=== PATIENT | female | born 1950 | race Caucasian/White ===

== ENCOUNTER → 2020-05-12 14:45 | Outpatient (BNVA) | payer OTHER, SELFPAY | PROVIDERS: PCP Internal Medicine; Referring Provider Internal Medicine; Visit Provider Internal Medicine Endocrinology, Diabetes & Metabolism | DX: Z13.89 Encounter for screening for other disorder (principal) | CPT/HCPCS: Q3014 ==

== ENCOUNTER → 2020-08-21 13:22 | Outpatient (BNVA) | payer OTHER, SELFPAY | PROVIDERS: PCP Internal Medicine; Visit Provider Student in an Organized Health Care Education/Training Program | DX: M19.041 Primary osteoarthritis, right hand (principal); M19.042 Primary osteoarthritis, left hand; M17.0 Bilateral primary osteoarthritis of knee | CPT/HCPCS: 99212 ==

== ENCOUNTER 2020-11-24 13:58 | Outpatient (REF) | payer OTHER, SELFPAY ==
[2020-11-24 15:31] LABS: Estimated Average Glucose 232 mg/dL; Hemoglobin A1c % 9.7 %
[2020-11-24 15:34] LABS: Alanine Aminotransferase 68 U/L (0-31); Albumin Level 4.3 g/dL (3.5-5.0); Alkaline Phosphatase 331 U/L (39-117); Anion Gap 17 (12-20); Aspartate Amino Transferase 39 U/L (5-31); Bilirubin Total 0.7 mg/dL (0.0-1.0); Blood Urea Nitrogen 16 mg/dL (9-16); Calcium 10.1 mg/dL (8.4-10.2); Carbon Dioxide 22 mmol/L (22-29); Chloride 106 mmol/L (96-108); Cholesterol 152 mg/dL; Estimated Glomerular Filt Rate 48; Glucose Fasting 293 mg/dL (60-99); HDL Cholesterol 65 mg/dL; LDL Cholesterol Calculated 51 mg/dl; Potassium 4.5 mmol/L (3.3-5.1); Sodium 140 mmol/L (135-145); Total Protein 7.6 g/dL (6.5-8.0); Triglycerides 184 mg/dL
[2020-11-25 07:11] LABS: LDL Cholesterol Direct 50 mg/dL (<100)
== END 2020-11-24 13:59 | disposition home or self-care (01) ==
LOC: HO.LAB 13:58
PROVIDERS: Absent Provider Internal Medicine Endocrinology, Diabetes & Metabolism; PCP Internal Medicine; Visit Provider Internal Medicine
DX: J44.9 Chronic obstructive pulmonary disease, unspecified (principal); G47.33 Obstructive sleep apnea (adult) (pediatric); E11.65 Type 2 diabetes mellitus with hyperglycemia; E66.9 Obesity, unspecified; Z68.35 Body mass index [BMI] 35.0-35.9, adult; Z79.51 Long term (current) use of inhaled steroids; Z79.899 Other long term (current) drug therapy
CPT/HCPCS: 36415; 80053; 80061; 83036; 83721; 99202

== ENCOUNTER → 2021-09-14 14:30 | Outpatient (BNVA) | payer MEDICARE, SELFPAY | PROVIDERS: PCP Internal Medicine; Visit Provider Internal Medicine | DX: J44.9 Chronic obstructive pulmonary disease, unspecified (principal); G47.33 Obstructive sleep apnea (adult) (pediatric); E66.9 Obesity, unspecified; R91.1 Solitary pulmonary nodule; Z68.35 Body mass index [BMI] 35.0-35.9, adult | CPT/HCPCS: 99212 ==

== ENCOUNTER 2021-09-15 10:30 | Outpatient (REF) | payer MEDICARE, SELFPAY ==
--- NOTE | ~2021-09-15 | XR_ITS ---
EXAMINATION: XR SHOULDER, RIGHT CLINICAL INFORMATION: Right posterior shoulder pain, no injury COMPARISON: None TECHNIQUE: AP external rotation, Grashey, scapular Y, and axillary views of the right shoulder. FINDINGS: ACROMIOCLAVICULAR JOINT: Mild osteoarthritis of the acromioclavicular joint with marginal osteophytes. GLENOHUMERAL JOINT: Small marginal osteophytes without joint space narrowing indicative of mild osteoarthritis. SURROUNDING BONE AND SOFT TISSUES: Unremarkable. XR/XR shoulder RT min 2V IMPRESSION: Osteoarthritis of the right shoulder joints.
== END 2021-09-15 10:31 | disposition home or self-care (01) ==
LOC: HO.XRAY 10:30
PROVIDERS: PCP Internal Medicine; Visit Provider Nurse Practitioner Family
DX: M25.511 Pain in right shoulder (principal); M19.041 Primary osteoarthritis, right hand; M19.042 Primary osteoarthritis, left hand; M17.0 Bilateral primary osteoarthritis of knee; M79.7 Fibromyalgia; Z79.899 Other long term (current) drug therapy
CPT/HCPCS: 73030; 99212

== ENCOUNTER 2021-11-18 12:35 | Outpatient (REF) | payer OTHER, SELFPAY ==
--- NOTE | 2021-11-18 15:09 | PFT_ITS ---
FLOWS: FEV1 88% of predicted at 1.92 L. FVC 88% of predicted at 2.49 L. FEV1 to FVC ratio of 0.77. No bronchodilator response. LUNG VOLUMES: Total lung capacity 96% of predicted at 4.89 L. Residual volume 108% of predicted at 2.46 L. Slow vital capacity 87% of predicted at 2.43 L. Expiratory reserve volume 33% of predicted at 0.21 L. Diffusion capacity is mildly decreased, diffusion capacity corrects to normal after adjustment for alveolar ventilation. IMPRESSION: No obstructive or restrictive ventilatory defect. No bronchodilator response except in small to medium airways. Decreased expiratory reserve volume suggests extrathoracic restriction likely secondary to abdominal obesity. Lester Burnett MD AP/MODL / [id number]
== END 2021-11-18 12:36 | disposition home or self-care (01) ==
LOC: HO.RESP 12:35
PROVIDERS: PCP Internal Medicine; Visit Provider Internal Medicine
DX: J44.9 Chronic obstructive pulmonary disease, unspecified (principal); R06.02 Shortness of breath
CPT/HCPCS: 94060; 94727; 94729

== ENCOUNTER 2023-04-13 12:59 | Outpatient (AMB) | payer OTHER, SELFPAY ==
--- NOTE | 2023-04-13 13:17 | A.OFFVIS_ITS ---
Intake Vital Signs 04/13/23 13:18 BP 126/72 Blood Pressure Location Lt brachial Position Sitting Pulse 116 H Pulse Source Pulse Oximeter Pulse Oximetry (%) 96 Oxygen Delivery Method Room Air Intake Visit Reasons: copd Allergies No Known Allergies [No Known Allergies*] Allergy (Verified 04/13/23 13:41) Medication List - Last Reconciled 04/13/23 by Michael Tripathi MD albuterol sulfate 90 mcg/actuation 2 puffs inhalation Q4H PRN alcohol swabs 0 pad topical QID aripiprazole 5 mg PO DAILY ascorbic acid (vitamin C) 500 mg PO QAM atorvastatin 20 mg PO BEDTIME blood sugar diagnostic (FreeStyle Lite Strips) 1 strip miscellaneous BID 90 days cholecalciferol (vitamin D3) 50 mcg PO DAILY 30 days duloxetine 60 mg PO DAILY duloxetine 30 mg PO DAILY empagliflozin 25 mg PO QAM 30 days fluticasone furoate-vilanterol 100-25 mcg/dose (Breo Ellipta) 1 ea PO DAILY folic acid 1 mg PO DAILY FreeStyle Lancets (lancets) 28 gauge topical BID 30 days NS gabapentin 600 mg PO TID galcanezumab-gnlm mg subcut galcanezumab-gnlm (Emgality) mg subcut glipizide ER 5 mg PO DAILY [heating pad As directed] melatonin 10 mg PO BEDTIME mirtazapine 15 mg PO BEDTIME nystatin topical BID omeprazole 20 mg PO DAILY ondansetron HCl 4 mg PO DAILY PRN sitagliptin phosphate (Januvia) 100 mg PO DAILY topiramate 25 mg PO DAILY Do you need a note to return to daycare/school/sports/work: No HPI copd HPI Details 73 YEARS OLD FEMALE IS HERE FOR FOLLOW-U P FOR HER COPD, AFTER 6 MONTHS. SHE HAS REMAINED VERY STABLE ALL ALONG, BUT DOES GET SHORT OF BREATH ON WALKING AROUND EVEN IN THE HOUSE. SHE HAS HAD NO RECURRENT RESPIRATORY INFECTION. THIS PATIENT ALSO HAS OBSTRUCTIVE SLEEP APNEA, SHE HAS BEEN FOLLOWED UP AT [facility] FOR HER SLEEP APNEA, SHE HAS ISSUES WITH THE MASK AND CANNOT USE THE CPAP REGULARLY. I ADVISED HER TO MAKE AN APPOINTMENT TO BE SEEN AT THE [facility] SLEEP MEDICINE OFFICE. SHE REMAINS GROSSLY OVERWEIGHT AND THAT CONTRIBUTES TO HER DYSPNEA ON EXERTION PFSH Medical History Pulmonary nodule Asthma with COPD ORALIA (obstructive sleep apnea) Vitamin D deficiency Obesity (BMI 30-39.9) Hypertension Dyslipidemia Diabetes type 2, uncontrolled Hx of cataract Surgical History History of lumpectomy of left breast Hx of knee surgery Hx of repair of rotator cuff Hx of cholecystectomy Family History Father Cirrhosis Mother Cancer Diabetes mellitus CVD (cardiovascular disease) Social History Patient Tobacco Use Status: Never used Tobacco Review of Systems Const All systems reviewed & are unremarkable except as noted in HPI and below Reports fatigue, Reports headache(s) (frequent ) and Reports snoring Eyes Reports other (H/O allergic conjunctivitis ) ENT Reports headache(s) (frequent ), Denies nasal congestion and Denies nasal discharge Card Denies chest pain (non specific ) and Reports dyspnea on exertion Resp Reports cough (mild , intermittent .), Reports dyspnea on exertion, Reports snoring and Denies wheezing GI Reports no additional complaints Reports no additional complaints Musc Reports back pain and Reports arthralgias Neuro Reports headache(s) (frequent ) Psych Reports no additional complaints Endo Reports fatigue and Reports other (Diabetes Mellitis ) Gerardo/Lymph Reports no additional complaints Aller/Immun Denies wheezing Physical Exam Vital Signs: Last Vital Signs Pulse 116 H 04/13/23 13:18 BP 126/72 04/13/23 13:18 Pulse Ox 96 04/13/23 13:18 Oxygen Delivery Method Room Air 04/13/23 13:18 Const General: comfortable, no acute distress, alert and awake Orientation/consciousness: patient oriented x3 HEENT Head: Yes normal to inspection General nose exam: No nasal polyps present and No nasal discharge present Face and sinus: Yes sinuses nontender Mouth: oropharynx normal Throat: Yes posterior oropharynx normal Eyes General: appearance normal, both eyes and all related structures Neck Neck: Yes normal visual inspection, Yes no lymphadenopathy, Yes trachea midline and Yes no JVD Thyroid: Thyroid normal Chest Chest palpation & inspection: normal inspection of the chest, normal palpation of entire chest wall and no tenderness Resp Other: Percussion note is resonant, breath sounds slightly distant but equal on both sides No wheezes rhonchi or Creps are heard. Cardio Palpation: normal PMI Rate: regular rate Rhythm: regular rhythm Heart sounds: no gallops and no murmurs GI Palpation (GI): Soft to palpation, nontender, No hepatosplenomegaly present and no masses Auscultation: normal bowel sounds Back/Spine/Pelvis Thoracic/Lumbar Spine: thoracic and lumbar spine normal to inspection Skin General skin exam: no rashes or lesions noted Neuro General: patient oriented x3 and no focal motor deficits Cranial nerves: Yes CN's II-XII intact bilaterally Extrem General: Yes normal to inspection, Yes no clubbing, cyanosis or edema and Yes no calf tenderness Psych Appearance: grossly normal and well kempt Speech and movement: Normal speech and movement present Assessment & Plan Assessment & Plan (1) Asthma with COPD: Comment: SYMPTOMS SUGGESTIVE OF CHRONIC BRONCHIAL ASTHMA/COPD, BUT SHE MAY ALSO HAVE SOME RESTRICTIVE PULMONARY COMPONENT. A PULMONARY FUNCTION TEST IS ORDERED TO CLARIFY THE DIAGNOSIS. ( DID NOT HAVE PULMONARY FUNCTION TEST ) [place] : CONTINUE, BREO-100/25 1 INHALATION DAILY AND PROAIR 2 PUFFS Q 4-6 HOURS ONLY P.R.N. IF HE SHE HAS WHEEZING OR BOUTS OF PERSISTENT COUGH ( prescriptions renewed) Code(s): J44.9 - Chronic obstructive pulmonary disease, unspecified (2) Pulmonary nodule: Comment: DURING A RECENT ADMISSION AT TO [facility] FOR CHEST PAIN, SHE HAD CTA OF THE CHEST. SHE WAS FOUND TO HAVE 14 MM NODULE IN THE LINGULA. A repeat CT scan was ordered the last time when I saw her in 2021, . But it has never been done I a.m. placing an order for CT scan now once again. Code(s): R91.1 - Solitary pulmonary nodule (3) ORALIA (obstructive sleep apnea): Comment: PATIENT DID HAVE HOME SLEEP STUDY AT [facility] SHE HAD MILD OBSTRUCTIVE SLEEP APNEA WITH TOTAL SLEEP TIME AHI 9 FOR MANAGEMENT OF HER CPAP AND SLEEP APNEA SHE IS TO BE FOLLOWED UP AT [facility] SLEEP MEDICINE. I ADVISED HER TO MAKE APPOINTMENT AND SEE THEM REGULARLY. Code(s): G47.33 - Obstructive sleep apnea (adult) (pediatric) Orders: Orders CT chest wo IV con Today J44.9 - Chronic obstructive pulmonary disease, unspecified, R91.1 - Solitary pulmonary nodule Coding Level of Care Code Est Pt Level 3 (14079) Diagnoses Asthma with COPD J44.9 Pulmonary nodule R91.1 ORALIA (obstructive sleep apnea) G47.33
[2023-04-13 13:18] VITALS: BP 126/72; PULSE 116; O2SAT 96
== END 2023-04-13 13:42 | disposition home or self-care (01) ==
PROVIDERS: PCP Internal Medicine; Visit Provider Internal Medicine
DX: J44.9 Chronic obstructive pulmonary disease, unspecified (principal); R91.1 Solitary pulmonary nodule; G47.33 Obstructive sleep apnea (adult) (pediatric)
CPT/HCPCS: 99213

== ENCOUNTER → 2023-04-13 12:59 | Outpatient (BNVA) | payer OTHER, SELFPAY | PROVIDERS: PCP Internal Medicine; Visit Provider Internal Medicine | DX: J44.9 Chronic obstructive pulmonary disease, unspecified (principal); R91.1 Solitary pulmonary nodule; G47.33 Obstructive sleep apnea (adult) (pediatric) | CPT/HCPCS: 99212 ==

== ENCOUNTER 2023-05-17 15:26 | Outpatient (REF) | payer MEDICARE, MEDICAID, SELFPAY ==
--- NOTE | ~2023-05-17 | CT_ITS ---
EXAMINATION: CT CHEST WITHOUT CONTRAST CLINICAL INFORMATION: Asthma with COPD, solitary pulmonary nodule COMPARISON: None available. TECHNIQUE: Multidetector volumetric CT imaging of the chest was done. Axial MIP volume rendering provided. Sagittal and coronal reformatted images were obtained. This CT examination was performed using dose optimization techniques as appropriate, variously including the following: *Automated exposure control *Adjustment of mA and/or kV according to patient size (this includes techniques or standardized protocols for targeted exams where dose is matched to indication/reason for exam; i.e. extremities or head) *Use of iterative reconstruction technique DLP: 166 mGy-cm FINDINGS: CREDIT ADJUSTER: Mildly elevated right hemidiaphragm. Cholecystectomy clips. LUNGS: Right apical and pleural parenchymal thickening. Trachea and bronchi are patent. Right posterolateral tracheal diverticulum. Mild bronchial wall thickening. Scattered atelectasis. No consolidations, groundglass opacities or nodules. MEDIASTINUM: Unremarkable thyroid. Small hiatal hernia. No pathologic lymphadenopathy. Nonspecific lymph nodes, prevascular lymph node measures 5 mm in short axis. No pathologic lymphadenopathy. Heart is not enlarged. No pericardial effusion. Nonaneurysmal aorta. Nonenlarged pulmonary arteries. CORONARY ARTERY CALCIFICATION: None visualized on this study. PLEURA: There is no pleural effusion. No pleural mass or thickening. AXILLA: No lymphadenopathy. UPPER ABDOMEN: Diffuse hypodensity to enlarged liver. Status post cholecystectomy. Findings suggesting previous gastric surgery. OSSEOUS STRUCTURES: Degenerative changes. No suspicious osseous lesions. CT/CT chest wo IV con IMPRESSION: No suspicious lung nodules. No acute cardiopulmonary disease.. Enlarged fatty liver. Fleischner guidelines were followed.
== END 2023-05-17 15:27 | disposition home or self-care (01) ==
LOC: HO.CT 15:26
PROVIDERS: PCP Internal Medicine; Visit Provider Internal Medicine
DX: R91.1 Solitary pulmonary nodule (principal); J44.9 Chronic obstructive pulmonary disease, unspecified
CPT/HCPCS: 71250

== ENCOUNTER 2023-10-12 13:18 | Outpatient (AMB) | payer OTHER, SELFPAY ==
--- NOTE | 2023-10-12 13:25 | A.OFFVIS_ITS ---
Vital Signs 10/12/23 13:26 Height 5 ft 4 in Weight 200 lb 9.93 oz BMI 34.4 BP 130/80 Blood Pressure Location Lt brachial Position Sitting Pulse 111 H Pulse Source Pulse Oximeter Pulse Oximetry (%) 96 Oxygen Delivery Method Room Air Intake Visit Reasons: copd Intake Note: pt is here and states she feels little short of breath with walking [employer] Required: No Allergies No Known Allergies [No Known Allergies*] Allergy (Verified 10/12/23 13:41) Medication List - Last Reconciled 10/12/23 by Michael Tripathi MD albuterol sulfate 90 mcg/actuation 2 puffs inhalation Q4H PRN alcohol swabs 0 pad topical QID ascorbic acid (vitamin C) 500 mg PO QAM atorvastatin 20 mg PO BEDTIME blood sugar diagnostic (FreeStyle Lite Strips) 1 strip miscellaneous BID 90 days cholecalciferol (vitamin D3) 50 mcg PO DAILY 30 days divalproex ER (Depakote ER) 500 mg PO DAILY empagliflozin 25 mg PO QAM 30 days fluticasone furoate-vilanterol 100-25 mcg/dose (Breo Ellipta) 1 ea PO DAILY 30 days folic acid 1 mg PO DAILY FreeStyle Lancets (lancets) 28 gauge topical BID 30 days NS gabapentin 600 mg PO TID galcanezumab-gnlm mg subcut galcanezumab-gnlm (Emgality) mg subcut glipizide ER 10 mg PO DAILY [heating pad As directed] hydroxyzine HCl 10 mg PO BEDTIME mecobalamin (vitamin B12) 1,000 mcg PO DAILY nystatin topical BID PRN riboflavin (vitamin B2) 100 mg PO DAILY sitagliptin phosphate (Januvia) 100 mg PO DAILY venlafaxine ER 150 mg PO BEDTIME venlafaxine ER 75 mg PO BEDTIME Do you need a note to return to daycare/school/sports/work: No HPI HPI copd: Details: 73 years old female moderately obese, is here for follow-up of her COPD . She has remained stable in the last 6 months without any acute infection or ex acerbation. She does get short of breath when she walks up hill or climbs stairs, and has only occasional cough. She has hardly needed to use albuterol. She does use Breo once a day . After her last visit here she had CT scan of the chest which was essentially normal and there was no nodule noted. She is a case of obstructive sleep apnea being followed by sleep medicine of [facility], however even after her last visit she has not been able to contact the service and she has not been provided with any CPAP . [facility] Medical History Pulmonary nodule Asthma with COPD ORALIA (obstructive sleep apnea) Vitamin D deficiency Obesity (BMI 30-39.9) Hypertension Dyslipidemia Diabetes type 2, uncontrolled Hx of cataract Surgical History History of lumpectomy of left breast Hx of knee surgery Hx of repair of rotator cuff Hx of cholecystectomy Family History Father Cirrhosis Mother Cancer Diabetes mellitus CVD (cardiovascular disease) Social History Patient Tobacco Use Status: Never used Tobacco Review of Systems Const All systems reviewed & are unremarkable except as noted in HPI and below Reports fatigue, Reports headache(s) (frequent ) and Reports snoring Eyes Reports other (H/O allergic conjunctivitis ) ENT Reports headache(s) (frequent ), Denies nasal congestion and Denies nasal discharge Card Denies chest pain (non specific ) and Reports dyspnea on exertion Resp Reports cough (mild , intermittent .), Reports dyspnea on exertion, Reports snoring and Denies wheezing GI Reports no additional complaints Reports no additional complaints Musc Reports back pain and Reports arthralgias Neuro Reports headache(s) (frequent ) Psych Reports no additional complaints Endo Reports fatigue and Reports other (Diabetes Mellitis ) Gerardo/Lymph Reports no additional complaints Aller/Immun Denies wheezing Physical Exam Vital Signs: Last Vital Signs Pulse 111 H 10/12/23 13:26 BP 130/80 10/12/23 13:26 Pulse Ox 96 10/12/23 13:26 Oxygen Delivery Method Room Air 10/12/23 13:26 BMI result Body Mass Index 34.4 Const General: comfortable, no acute distress, alert and awake Orientation/consciousness: patient oriented x3 HEENT Head: Yes normal to inspection General nose exam: No nasal polyps present and No nasal discharge present Face and sinus: Yes sinuses nontender Mouth: oropharynx normal Throat: Yes posterior oropharynx normal Eyes General: appearance normal, both eyes and all related structures Neck Neck: Yes normal visual inspection, Yes no lymphadenopathy, Yes trachea midline and Yes no JVD Thyroid: Thyroid normal Chest Chest palpation & inspection: normal inspection of the chest, normal palpation of entire chest wall and no tenderness Resp Other: Percussion note is resonant, breath sounds slightly distant but equal on both sides No wheezes rhonchi or Creps are heard. Cardio Palpation: normal PMI Rate: regular rate Rhythm: regular rhythm Heart sounds: no gallops and no murmurs GI Palpation (GI): Soft to palpation, nontender, No hepatosplenomegaly present and no masses Auscultation: normal bowel sounds Back/Spine/Pelvis Thoracic/Lumbar Spine: thoracic and lumbar spine normal to inspection Skin General skin exam: no rashes or lesions noted Neuro General: patient oriented x3 and no focal motor deficits Cranial nerves: Yes CN's II-XII intact bilaterally Extrem General: Yes normal to inspection, Yes no clubbing, cyanosis or edema and Yes no calf tenderness Psych Appearance: grossly normal and well kempt Speech and movement: Normal speech and movement present Results Reviewed Results Reviewed: CT SCAN OF CHEST 05/17/23 CT/CT chest wo IV con IMPRESSION: No suspicious lung nodules. No acute cardiopulmonary disease.. Enlarged fatty liver. Fleischner guidelines were followed. Assessment & Plan Assessment & Plan (1) Asthma with COPD: Comment: SYMPTOMS SUGGESTIVE OF CHRONIC BRONCHIAL ASTHMA/COPD, MILD PULMONARY FUNCTION TEST WAS ACTUALLY NORMAL . Code(s): J44.9 - Chronic obstructive pulmonary disease, unspecified Category: Medical Plan: TX : CONTINUE, BREO-100/25 1 INHALATION TDAILY AND PROAIR 2 PUFFS Q 4-6 HOURS ONLY P.R.N. IF HE SHE HAS WHEEZING OR BOUTS OF PERSISTENT COUGH ( prescriptions renewed) (2) ORALIA (obstructive sleep apnea): Comment: PATIENT DID HAVE HOME SLEEP STUDY AT [facility] SHE HAD MILD OBSTRUCTIVE SLEEP APNEA WITH TOTAL SLEEP TIME AHI 9 FOR MANAGEMENT OF HER CPAP AND SLEEP APNEA SHE IS TO BE FOLLOWED UP AT [facility] SLEEP MEDICINE. SINCE HER LAST VISIT SHE HAS HAD NO CONTACT WITH. THE SLEEP MEDICINE SERVICE I TOLD HER THAT IF SHE WOULD LIKE US TO MANAGE HER OBSTRUCTIVE SLEEP APNEA SHE CAN TALKED TO HER PCP AND GET AN OK Code(s): G47.33 - Obstructive sleep apnea (adult) (pediatric) Category: Medical Plan: ABOVE (3) Pulmonary nodule: Comment: DURING HER ADMISSION AT TO [facility] FOR CHEST PAIN, SHE HAD CTA OF THE CHEST. SHE WAS FOUND TO HAVE 14 MM NODULE IN THE LINGULA. HOWEVER CT SCAN OF THE CHEST HERE IN LAST APRIL, DID NOT SHOW ANY PULMONARY NODULE AND WAS ESSENTIALLY NORMAL. Code(s): R91.1 - Solitary pulmonary nodule Category: Medical Plan: NO FURTHER ACTION NEEDED. Medications: Changed From glipizide ER 5 mg PO DAILY 30 tabs 3RF E11.65 - Type 2 diabetes mellitus with hyperglycemia To glipizide ER 10 mg PO DAILY E11.65 - Type 2 diabetes mellitus with hyperglycemia
[2023-10-12 13:26] VITALS: BP 130/80; PULSE 111; O2SAT 96; BMI 34.4
== END 2023-10-12 13:43 | disposition home or self-care (01) ==
PROVIDERS: PCP Internal Medicine; Visit Provider Internal Medicine
DX: J44.9 Chronic obstructive pulmonary disease, unspecified (principal); G47.33 Obstructive sleep apnea (adult) (pediatric); R91.1 Solitary pulmonary nodule
CPT/HCPCS: 99213

== ENCOUNTER → 2023-10-12 13:18 | Outpatient (BNVA) | payer OTHER, SELFPAY | PROVIDERS: PCP Internal Medicine; Visit Provider Internal Medicine | DX: J44.9 Chronic obstructive pulmonary disease, unspecified (principal); G47.33 Obstructive sleep apnea (adult) (pediatric); R91.1 Solitary pulmonary nodule | CPT/HCPCS: 99212 ==